=== PATIENT | male | born 1995 | race Caucasian/White ===

== ENCOUNTER 2022-12-23 21:43 | Emergency (ER) | payer OTHER ==
[~2022-12-23] VITALS: Ht 175.3 cm; Wt 86.3 kg
[2022-12-23] MEDS ORDERED: KETOROLAC 30 MG/ML 1ML VIAL IV ONE (22:50)
[2022-12-23] MEDS ORDERED: NS 1,000 ML IV ONE (22:50)
[2022-12-23] MEDS ORDERED: ONDANSETRON 4MG 2ML VIAL IV ONE (22:50)
[2022-12-23 22:51] VITALS: BP 155/93
[2022-12-23 23:12] LABS: BASO % 0.5 % (0.0-1.0); EOS # 0.2 10^3/uL (0.0-0.5); EOS % 2.2 % (0.0-3.0); HEMATOCRIT 43.2 % (42.0-52.0); HEMOGLOBIN 14.2 g/dl (13.5-17.5); LYMPH # 1.4 10^3/uL (1.5-5.0); MEAN CORPUSCULAR HEMOGLOBIN 29.2 pg (27.0-33.0); MEAN CORPUSCULAR HGB CONC 32.9 g/dl (32.0-36.5); MEAN CORPUSCULAR VOLUME 88.7 fl (80.0-96.0); MONO # 0.5 10^3/uL (0.0-0.8); MONO % 5.8 % (2.0-8.0); NEUTROPHILS # 6.5 10^3/uL (1.5-8.5); NEUTROPHILS % 75.3 % (36.0-66.0); PLATELET COUNT, AUTOMATED 217 10^3/uL (150-450); RED BLOOD COUNT 4.87 10^6/uL (4.30-6.10); WHITE BLOOD COUNT 8.6 10^3/uL (4.0-10.0)
[2022-12-23] MEDS ORDERED: MORPHINE 4 MG/ML 1ML VIAL IV PRN (23:20)
[2022-12-23 23:43] LABS: LIPASE 29 U/L (12-53)
[2022-12-24 00:01] LABS: ALBUMIN 4.3 G/DL (3.2-5.2); ALKALINE PHOSPHATASE 50 U/L (46-116); ALT/SGPT 67 U/L (7.0-40); AST/SGOT 80 U/L (<34); BILIRUBIN,DIRECT 0.1 MG/DL (<0.4); BILIRUBIN,TOTAL 0.6 MG/DL (0.3-1.2); BLOOD UREA NITROGEN 17 MG/DL (9-23); CALCIUM LEVEL 9.3 MG/DL (8.5-10.1); CARBON DIOXIDE LEVEL 26 MMOL/L (20-31); CHLORIDE LEVEL 102 MMOL/L (98-107); CREATININE FOR GFR 1.13 MG/DL (0.70-1.30); GLOMERULAR FILTRATION RATE > 60.0 (>60); GLUCOSE, FASTING 119 MG/DL (60-100); POTASSIUM SERUM 4.7 MMOL/L (3.5-5.1); SODIUM LEVEL 140 MMOL/L (136-145); TOTAL PROTEIN 7.2 G/DL (5.7-8.2)
[2022-12-24] MEDS ORDERED: KETO10TAB PO (03:07)
[2022-12-24] MEDS ORDERED: FLOM0.4C39 PO (03:07)
[2022-12-24] MEDS ORDERED: TAMSULOSIN 0.4 MG CAP PO ONE (03:10)
[2022-12-24] MEDS ORDERED: OXYCODONE/APAP 5MG/325MG(HOME DOSE PACK) PO ONE (03:10)
== END 2022-12-24 03:33 | disposition home or self-care (01) ==
LOC: M ED 21:43 → EDBD 21:43 → M ED 12-24 03:33
DX: N21.1 Calculus in urethra (principal)
CPT/HCPCS: 74176; 80048; 80076; 81001; 83605; 83690; 85025; 93041; 96361; 96374; 96375; 99284; J1885; J2270; J2405

== ENCOUNTER → 2023-02-04 | Outpatient (CLI) | payer OTHER ==
[~2023-02-04] MED LIST: FLOM0.4C39 PO; KETO10TAB PO
== END ==
LOC: M PLARAD 12:22
DX: M25.571 Pain in right ankle and joints of right foot (principal)

== ENCOUNTER → 2023-02-05 | Outpatient (CLI) | payer OTHER | LOC: M PLARAD 12:23 | DX: M25.572 Pain in left ankle and joints of left foot (principal) ==